=== PATIENT | male | born 1950 | race Caucasian/White ===

== ENCOUNTER → 2017-02-27 | Outpatient (REF) | payer MEDICARE, OTHER ==
[~2017-02-27] MED LIST: METO-259 PO; NASONEX; PRE10 PO; PROAIR; SIM10 PO; [UNRECOGNIZED DRUG - OTHER]
== END ==
LOC: ZZSENDIN 12:30
PROVIDERS: ATTEND Family Medicine
DX: I10 Essential (primary) hypertension (principal)
CPT/HCPCS: 81001

== ENCOUNTER 2017-03-10 01:12 | Inpatient (IN) | payer MEDICARE, OTHER ==
--- NOTE | 2017-02-24 09:13 | EKG ---
FACILITY: [facility] PATIENT NAME: SHYANN REHMAN : [id number] MR: [id number] V: [id number] EXAM DATE: ORDERING PHYSICIAN: JALEN BOSWELL TECHNOLOGIST: ANDERSON Moore Reason : PREOP-KNEE Blood Pressure : / mmHG Vent. Rate : 053 BPM Atrial Rate : 053 BPM P-R Int : 190 ms QRS Dur : 114 ms QT Int : 408 ms P-R-T Axes : 077 068 053 degrees QTc Int : 382 ms Sinus bradycardia Nonspecific interventricular conduction delay Decreased R wave progression anteriorly Hint of delta wave in limb leads No previous ECGs available Confirmed by WINSTON SALAMANCA ([id number]) on 02/24/2017 12:29:50 PM Referred By: ANDREIA Confirmed By:WINSTON SALAMANCA
--- NOTE | 2017-02-24 09:36 | RADIOLOGY IMAGING REPORT ---
FACILITY: [facility] PATIENT NAME: Dylan Dumont : 1950 MR: [id number] V: [id number] EXAM DATE: ORDERING PHYSICIAN: JALEN BOSWELL TECHNOLOGIST: Location: [facility] - [place] Patient: Dylan Dumont : 1950 Visit/Account:[id number] Date of Sevice: 02/24/2017 CHEST PA AND LAT HISTORY: Preop knee arthroplasty COMPARISON: None FINDINGS: Cardiomediastinal contours: Normal Lungs and pleura: Normal Bones/soft tissues: Normal Other findings: None significant IMPRESSION: 1. Normal chest Report Dictated By: Rosas Wasserman MD at 02/24/2017 9:30 AM Report E-Signed By: Rosas Wasserman MD at 02/24/2017 9:31 AM WSN:[email or web address]
[2017-03-09 14:56] LABS: INR 1.01
--- NOTE | 2017-03-09 15:41 | RADIOLOGY IMAGING REPORT ---
FACILITY: [facility] - [place] PATIENT NAME: Dylan Dumont : 1950 MR: [id number] V: [id number] EXAM DATE: ORDERING PHYSICIAN: JALEN BOSWELL TECHNOLOGIST: Location: [facility] - [place] Patient: Dylan Dumont : 1950 Visit/Account:[id number] Date of Sevice: 03/02/2017 LEGS BILAT STANDING HIPS-ANKLE INDICATION: Preop. Left knee pain. COMPARISON: None available FINDINGS: On the right: The right femur measures 48.6cm from the superior margin right femoral head to the medial femoral con dyle. The right tibia measures 37.5 cm from the medial tibial plateau to the medial tibial plafond. No acute osseous abnormality of the visualized right femur or the tibia and fibula. Mild medial wilfred rtment narrowing. On the left: The left femur measures 48.7 cm from the superior margin left femoral head to the medial femoral cond yle. The left tibia measures 37.7 cm from the medial tibial plateau to the medial tibial plafond.. T here is moderate medial compartment narrowing left knee. No acute osseous abnormality of visualized left femur or tibia and fibula. There is no evidence of significant pelvic tilt. IMPRESSION: 1. No significant leg length discrepancy with measurements as described above. 2. Degenerative changes more prominent at the left knee than the right knee. Report Dictated By: Qasim Chris MD at 03/09/2017 3:32 PM Report E-Signed By: Qasim Chris MD at 03/09/2017 3:35 PM WSN:[id number]
[2017-03-10] VITALS (15 sets, daily range): BP systolic 107–141; BP diastolic 58–99; Ht 188 cm; Wt 87.5 kg
[~2017-03-10] VITALS: Ht 188 cm; Wt 87.5 kg
[~2017-03-10 01:12] MED LIST changes: +AMLO-96 PO; +ASPI81TA94 PO; +FLUT1DIS28 IH; +LOSA100T67 PO; +MONT10TA PO; +OMEP40CA48 PO; +SIMV-49 PO
[2017-03-10] MEDS ORDERED: VANCOMYCIN(*) 1 GM VIAL 1 GM, VANCOMYCIN (*) 0.5 GM VIAL 0.25 GM in NS(*) 0.9% 250 ML B... IVPB ONE (06:15)
[2017-03-10] MEDS ORDERED: MORPHINE PF 5 MG/10 ML AMP ONE (07:04)
[2017-03-10] MEDS ORDERED: PROPOFOL EMUL(*) 10MG/ML 20 ML 20 ML ONE (07:07)
[2017-03-10] MEDS ORDERED: fentaNYL CITR 100 MCG/2 ML AMP ONE ×2 (07:07→08:12)
[2017-03-10] MEDS ORDERED: LIDOCAINE 2% IV 100 MG/5ML SYR ONE (07:08)
[2017-03-10] MEDS ORDERED: PROPOFOL EMUL(*) 10MG/ML 20 ML 60 ML ONE (07:10)
[2017-03-10] MEDS ORDERED: DEXAMETHASONE SOD 4 MG/ML VIAL ONE (07:27)
[2017-03-10] MEDS ORDERED: ONDANSETRON 4 MG/2 ML VIAL ONE (07:28)
[2017-03-10] MEDS ORDERED: LACTATED RINGER 3000 ML BAG IR ONE (08:08)
[2017-03-10] MEDS ORDERED: PROPOFOL EMUL(*) 10MG/ML 20 ML 40 ML ONE ×2 (08:10→08:57)
[2017-03-10] MEDS ORDERED: diphenhydrAMINE 25 MG CAP PO PRN ×2 (10:25)
[2017-03-10] MEDS ORDERED: PROMETHAZINE 25 MG/ML 1 ML AMP IVP PRN (10:25)
[2017-03-10] MEDS ORDERED: ONDANSETRON 4 MG/2 ML VIAL IVP PRN ×2 (10:25)
[2017-03-10] MEDS ORDERED: NALOXONE HCL 0.4 MG/ML VIAL IVP PRN (10:25)
[2017-03-10] MEDS ORDERED: NALBUPHINE HCL 10 MG/ML AMP IVP PRN (10:25)
[2017-03-10] MEDS ORDERED: KCL/D5LR 20 MEQ/1000 ML PREMIX 1,000 ML IV PRN (10:25)
[2017-03-10] MEDS ORDERED: ACETAMINOPHEN 500 MG TAB PO PRN (10:25)
[2017-03-10] MEDS ORDERED: MAGNESIUM CITRATE 300 ML BTL PO PRN (10:25)
[2017-03-10] MEDS ORDERED: FLUSH 10 ML SYR IVP PRN (10:25)
[2017-03-10] MEDS ORDERED: LIDOCAINE/SOD BICARB 8.4% SYR ID ONE (10:50)
[2017-03-10] MEDS ORDERED: TRANEXAMIC AC 1000 MG/10ML SDV 1,000 MG in DEXTROSE 5% 50 ML BAG 50 ML IV ONE (10:50)
[2017-03-10] MEDS ORDERED: NORMOSOL R SOLN(*) 1000 ML BAG 1,000 ML IV PRN (10:50)
[2017-03-10] MEDS ORDERED: MIDAZOLAM 2 MG/2 ML VIAL IVP ONE (10:50)
[2017-03-10] MEDS ORDERED: cloNIDine EPIDUR INJ 100MCG/ML 40 MCG, ROPIVACAINE 0.5% 20 ML VIAL 25 ML, EPINEPHrine H... INJ ONE (10:50)
[2017-03-10] MEDS ORDERED: FAMOTIDINE 20 MG TAB PO ONE (10:50)
--- NOTE | 2017-03-10 11:32 | RADIOLOGY IMAGING REPORT ---
FACILITY: [facility] PATIENT NAME: Dylan Dumont : 1950 MR: [id number] V: [id number] EXAM DATE: ORDERING PHYSICIAN: JALEN BOSWELL TECHNOLOGIST: Location: [facility] - [place] Patient: Dylan Dumont : 1950 Visit/Account:[id number] Date of Sevice: 03/10/2017 KNEE LIMITED LEFT HISTORY: S/P HEMIARTHROPLASTY LEFT KNEE, CHECK PLACEMENT TWO-VIEW EXAMINATION OF LEFT KNEE FINDINGS: Status post left knee medial hemiarthroplasty. Good positioning of the medial femoral and medial tibi al plateau components. Lateral joint compartments relatively well-maintained. Postop soft tissue bell ges noted. IMPRESSION: 1. Status post medial left knee hemiarthroplasty Report Dictated By: Miles Powell MD at 03/10/2017 11:26 AM Report E-Signed By: Miles Powell MD at 03/10/2017 11:27 AM WSN:[id number]
--- NOTE | 2017-03-10 15:31 | OPERATIVE REPORT 1 ---
EVENT DATE: March 10, 2017 SURGEON: Vivek Hoang MD ANESTHESIOLOGIST: Ced Orozco MD ANESTHESIA: General plus Duramorph spinal. MAGNETIC PROSPECTING SUPERVISOR: KRISTEN Moreno PREOPERATIVE DIAGNOSIS Left knee anteromedial arthritis. POSTOPERATIVE DIAGNOSIS Left knee anteromedial arthritis. PROCEDURE PERFORMED Left unicompartmental knee arthroplasty. FINDINGS No evidence of significant lateral or patellofemoral compartment arthritis with intact ACL and MCL. SUMMARY OF PROCEDURE The patient was brought into the operating room and placed on the OR table in the supine position. He was given a Duramorph spinal and then a general anesthetic. The left lower extremity was prepped and draped in the usual sterile fashion. He was held up on a knee ahuja, leaving his hip flexed 30 to 40 degrees with some abduction. The ASIS was left palpable, and the knee was allowed to flex at about 110 degrees with no pressure on the popliteal region. We exsanguinated the limb and inflated the tourniquet. A medial parapatellar arthrotomy was made up about 2 cm into the vastus medialis and down to the tibia tubercle. We then began to examine the knee. The ACL was covered by quite a bit of scar tissue in the notch, so it took some time to clear this out and evaluate it. The ACL looked completely normal. It was a little bit soft on exam, but when I stretched it anteriorly, it definitely did come to an adequate resistance. The MCL was intact. There was no lateral cartilage damage. He had a lot of osteophytes in the notch which were removed with an osteotome as well as a rongeur, and there were also quite a few osteophytes on the superomedial and inferomedial aspects. The tibia had some osteophytes anteriorly which were removed. Having done this, we checked the sizer, and it looked like a #1 fit best. We then aligned with the tibia on a long tibial alignment guide and cut with the standard cutting block. The sagittal cut was made with the slotted block in place so that we would not go too far inferior, and then I used the standard transverse saw to make our transverse cut in the tibia. Unfortunately, in this particular case, it was not easy to get the "biscuit" out of the joint space. It was tethered by osteophytes posteriorly and also heavily tethered to the capsule, so I tried pulling it several times to and fro, and it eventually broke in half which made the job of getting it out that much harder. We had to lever with an osteotome back and forth, and eventually with the help of a Dwight as well as a [id number], we were able to turn it sideways and then start to peel it off the backside and remove it. We then worked on getting a little bit more osteophyte removal off the medial side of the tibia and then sized it to a size D tibia based on the cut section that was removed. Subsequent to this, the intramedullary guidance was obtained. We did our two anterior femoral drill holes, the four and the six, and then removed the wilder. The sizer we had used for the femoral cutting was a good match from the previous cut on the tibia. We then used the posterior cutting jig with the saw and removed this bone after having inserted the cutting guide and then removing it again. We then placed the zero spigot and did our first milling, removing some osteophytes on the margin. We did our trial with the tibial tray in place. A 5 was just a little bit loose, and a 6 felt a bit tight, but it was fairly good in flexion. In extension, it measured a 3, so we put a 2 spigot in and milled a second time. We checked one more time , and it looked like it was good in flexion, but still just a little bit tight in extension, so we did one additional milling to take a bit more off, going with a 3 to take an additional millimeter. We then did the anti-impingement reaming as well as the posterior osteophyte removal. Unfortunately, the osteophyte did not completely come off with the osteophyte blade. I had to use a standard osteophyte to get the part that was a little bit more medial. With this removed, we then proceeded to trial again, and it looked like a 5 was going to be just a little bit loose. It wiggled a bit, and the 6 really fit quite nicely. Consequently, we went with the 6 as our plan. A drill was used to prepare the cementation beds on both the tibia and the femur. We then mixed cement with gentamicin included and inserted the cement first onto the tibial shelf, packed this down, and removed excess cement. Removing cement from the posterior aspect was really not possible at this step. None was visible, but there may have been some that extruded posteriorly. The rest was removed as normal, and then we put the femoral component in. This was fairly easy to remove on the cement. We then put a trial 6 insert and held position at 45 degrees until full polymerization while injecting local anesthetic. Subsequent to this, the trial was done again with the tourniquet down, and it looked like the 6 would work well, so we removed the trial and inserted the final 6 mm insert. The wound was irrigated once more as it had been previously, and then we closed the capsule, repairing the vastus medialis split superiorly, followed by 3-0 Vicryl for the subcutaneous tissue and then 4-0 Monocryl for the subcuticular layer with a Dermabond strip applied. He was given a dry, sterile dressing and was then awakened and transferred to the recovery area in stable condition. LE
--- NOTE | 2017-03-10 15:59 | Hospitalist Consultation ---
History of Present Illness Requesting Physician Dr. Boswell Reason for Consult s/p L-TKA and medical management Chief Complaint L-knee pain History of Present Illness Mr. Dumont is a 66 y.o. male with PMH of HTN on Norvasc 5mg, Losartan 100mg, Dyslipidemia on Lipitor 20mg, B. Asthma on Singulair and Advair and L-knee arthritis who underwent L-TKA by Dr. Boswell today. He tolerated the surgical procedure and anesthesia well. I was asked to evaluate this patient for his medical management while he is in the hospital. Patient is asymptomatic and without complaint except mild pain. History Home Meds Reported Medications Montelukast Sodium (SINGULAIR) 10 Mg Tablet, 1 TAB PO QHS, TAB 03/02/17 Omeprazole (OMEPRAZOLE) 40 Mg Capsule.dr, 40 MG PO QAM, CAP 03/02/17 Amlodipine Besylate (AMLODIPINE BESYLATE) 5 Mg Tablet, 1 TAB PO QHS, TAB 03/02/17 Losartan Potassium (LOSARTAN POTASSIUM) 100 Mg Tablet, 100 MG PO QHS 03/02/17 Aspirin (ASPIRIN) 81 Mg Tab.chew, 81 MG PO QDAY, TAB.CHEW 03/02/17 Fluticasone/Salmeterol (ADVAIR 250-50 DISKUS) 1 Each Disk.w.dev, 1 EACH IH QAM 03/02/17 Simvastatin (SIMVASTATIN) 20 Mg Tablet, 20 MG PO HS, TAB 03/02/17 Allergies: Coded Allergies: aspirin (Verified Adverse Reaction, Mild, 03/02/17) PT REPORTS BEING DESENSITIZED TO ASA BUT STILL CONSIDERS AN ALLERGY. PT MUST CONTINUE TAKING OR ALLERGY WILL RETURN-PER PT Patient History: Patient reports no known family medical history. Hx Smoking: No Smoking Status: Never Smoker Caffeine Intake: Coffee Caffeine/Cups Per Day: 3-4 C PER DAY Hx Alcohol Use: Yes Hx Substance Use Disorder: No Social Drug Use: Never History of IV Drug Use: No Review of Systems Constitutional: No Fever Neurological: No Weakness, No Dizziness Cardiovascular: No Chest Pain, No Palpitations Respiratory: No Shortness of Breath, No Cough, No Wheezing Gastrointestinal: No Nausea, No Vomiting, No Diarrhea, No Constipation, No Abdominal Pain Genitourinary: No Dysuria, No Hematuria Musculoskeletal: Pain, Impaired Mobility, No Sprain, No Strain Psychiatric: No Depression, No Anxiety Exam Vital Signs Vital Signs Date Time Temp Pulse Resp B/P (MAP) Pulse Ox O2 Delivery O2 Flow Rate FiO2 03/10/17 15:26 98.3 64 16 91 Nasal Cannula 0.5 03/10/17 14:59 132/75 (94) General Appearance: Alert, Awake, No Acute Distress, Afebrile Neuro: No Gross deficits Eyes: PERRLA ENT: Normal Neck: No Masses Cardiovascular: Normal Rhythm & Peripheral Pulses Respiratory: No Respiratory Distress GI: Abd Soft and Non-Tender Extremities: Other (tender L-knee and decrease ROM) Medical Decision Making Data Points Result Diagram: 03/10/17 1015 Pre-Admit Course Medical Record Review: Yes Assessment and Plan Problems: (1) S/P total knee arthroplasty Status: Acute Assessment & Plan: I will hold his 81mg aspirin and start Aspirin 325mg po qd Management as per surgery and PT. ROM exercises (2) HTN (hypertension) Status: Chronic Assessment & Plan: His BP is well controlled I will resume her home BP medications. 2 grams sodium diet (3) Asthma Status: Chronic Assessment & Plan: His asthma is stable. I will resume his asthma medication. Central Venous Access Medical Necessity for Access: IV Access, Medication Administration Time Spent on Plan of Care: < 30 min Copies to: JALEN BOSWELL MD; HAL LARES DO Venous Thromboembolism VTE Risk Physician Assess for VTE Risk: Yes Patient's VTE Risk: Low VTE Diagnostic Test 2 Days Prior to Admit: No Antithrombotics Is Pt On Any Antithrombotics?: No Exam Sepsis Risk: No Definite Risk Problem Qualifiers (1) S/P total knee arthroplasty: Laterality: left Qualified Codes: Z96.652 - Presence of left artificial knee joint CARYN DICK MD Mar 10, 2017 15:59
[2017-03-10] MEDS ORDERED: SIMVASTATIN 20 MG TAB PO SCH (21:00)
[2017-03-10] MEDS ORDERED: amLODIPine BESYL(*) 5 MG TAB PO SCH (21:00)
[2017-03-10] MEDS ORDERED: LOSARTAN POTASSIUM 50 MG TAB PO SCH (21:00)
[2017-03-10] MEDS ORDERED: MONTELUKAST SODIUM 10 MG TAB PO SCH (21:00)
[2017-03-11 04:51] VITALS: BP 121/69
[2017-03-11 05:47] LABS: PLATELET COUNT, AUTOMATED 251 K/uL (150-450)
[2017-03-11] MEDS ORDERED: SALMETEROL/FLUTIC 250/50 1 INH INH SCH (06:00)
[2017-03-11 07:39] VITALS: BP 126/72
[2017-03-11] MEDS ORDERED: OXYC-823 PO (08:35)
[2017-03-11] MEDS ORDERED: PER PO (08:35)
[2017-03-11] MEDS ORDERED: ASPIRIN 325 MG TAB PO SCH (09:00)
[2017-03-11] MEDS ORDERED: PANTOPRAZOLE SOD 40 MG TABEC PO SCH (09:00)
[2017-03-11] MEDS ORDERED: ASPI-757 PO (09:01)
--- NOTE | 2017-03-11 09:08 | Miscellaneous Provider Note ---
Miscellaneous Provider Note Note This patient is scheduled for discharge today. He is currently using aspirin for prophylaxis, but this is also listed as an allergy in his record. I did clarify this with the patient. He has been diagnosed with Samter's Triad and is followed by specialists at [facility]. He has been on aspirin sensitization treatment with 325mg twice daily. He will resume this at discharge. GIAN NOLAN DO Mar 11, 2017 09:07
== END 2017-03-11 08:02 | disposition home or self-care (01) | DRG 470 ==
LOC: OR 01:12 → INTOOBSV 11:30 → OBSVTOIN 11:30 → MED 11:30
PROVIDERS: ADMIT Orthopaedic Surgery Hand Surgery; ATTEND Orthopaedic Surgery Hand Surgery
PROC: 0SRD0L9 Replacement of Left Knee Joint with Medial Unicondylar Synthetic Substitute, Cemented, Open Approach (ICD-10-PCS; principal; 2017-03-10 07:15)
DX: M17.32 Unilateral post-traumatic osteoarthritis, left knee (principal); I10 Essential (primary) hypertension; G47.33 Obstructive sleep apnea (adult) (pediatric); K21.9 Gastro-esophageal reflux disease without esophagitis; J98.8 Other specified respiratory disorders; E78.5 Hyperlipidemia, unspecified; J45.909 Unspecified asthma, uncomplicated; Z88.8 Allergy status to other drugs, medicaments and biological substances; Z99.81 Dependence on supplemental oxygen
CPT/HCPCS: 36415; 71046; 77073; 85014; 85018; 85025; 85610; 86850; 86900; 86901; 93005; 94640; 96372; 97161; C1713; C1776; G0378; J0171; J0735; J1100; J1885; J2001; J2250; J2270; J2405; J2704; J2795; J3010; J3370; J7050; J7060

== ENCOUNTER → 2018-09-15 | Outpatient (CLI) | payer MEDICARE, OTHER ==
[2017-03-10 19:42] VITALS: BMI 24.8
[~2018-09-15] MED LIST changes: +AMLO-125 PO; -AMLO-96 PO; +ASPI-757 PO; -LOSA100T67 PO; +LOSA100T75 PO; +OXYC-823 PO; +PER PO
== END ==
LOC: RESP 20:34
PROVIDERS: ATTEND Family Medicine
DX: G47.33 Obstructive sleep apnea (adult) (pediatric) (principal); G47.36 Sleep related hypoventilation in conditions classified elsewhere